=== PATIENT | female | born 1995 | race Two or more races ===

== ENCOUNTER → 2024-05-14 10:20 | Outpatient (CLI) | payer OTHER | END | disposition home or self-care (01) | LOC: PRENATAL 10:20 | PROVIDERS: ATTEND Obstetrics & Gynecology Maternal & Fetal Medicine | DX: O26.849 Uterine size-date discrepancy, unspecified trimester (principal); Z14.8 Genetic carrier of other disease; Z36.0 Encounter for antenatal screening for chromosomal anomalies; Z3A.17 17 weeks gestation of pregnancy ==

== ENCOUNTER 2024-06-12 15:50 | Outpatient (CLI) | payer OTHER | END 2024-06-12 15:51 | disposition home or self-care (01) | LOC: PRENATAL 15:50 | DX: O44.00 Complete placenta previa NOS or without hemorrhage, unspecified trimester (principal); Z3A.21 21 weeks gestation of pregnancy ==

== ENCOUNTER 2024-08-14 14:35 | Outpatient (CLI) | payer OTHER ==
[~2024-08-14] VITALS: Ht 157.5 cm; Wt 66.7 kg
[2024-08-14 14:16] VITALS: BP 103/65
[2024-08-14] MEDS ORDERED: PRENATAL TABLE1 EAC4 PO (14:38)
[2024-08-14 15:07] VITALS: BP 91/59
[2024-08-14 15:10] LABS: URINE APPEARANCE Turbid; URINE BILIRRUBIN Negative (NEGATIVE); URINE BLOOD Negative; URINE COLOR Yellow; URINE GLUCOSE Negative (NEGATIVE); URINE KETONE Negative (NEGATIVE); URINE LEUKOCYTE Moderate; URINE NITRATE Negative; URINE PROTEIN Negative (NEGATIVE); URINE UROBILINOGEN 0.2 E.U./dl
[2024-08-14 15:13] LABS: URINE BACTERIA 1590.9 uL (0.0-1933); URINE EPITHELIAL CELLS 77.4 uL (0.0-38.8); URINE WBC 24.3 uL (0.0-23.2)
[2024-08-14 15:26] LABS: BASO % 0.4 % (0.1-1.2); EOS # 0.06 (0.04-0.54); EOS % 0.8 % (0.7-7.0); HEMATOCRIT 35.6 % (34.1-44.9); HEMOGLOBIN 12.3 g/dL (11.2-15.7); LYMPH # 1.08 (1.18-3.74); LYMPH % 15.2 % (19.3-53.1); MEAN CORPUSCULAR HEMOGLOBIN 31.9 pg (25.6-32.2); MONO # 0.62 (0.24-0.82); MONO % 8.7 % (4.7-12.5); NEUT # 5.26 (1.56-6.13); NEUT % 74.2 % (34.0-71.1); PLATELET COUNT 166 K/uL (163-369); RED BLOOD COUNT 3.86 M/uL (3.93-5.22); RED CELL DISTRIBUTION WIDTH 12.1 % (11.6-14.4)
[2024-08-14 15:57] LABS: URINE CAST 0.14 uL (0.0-1.40); URINE RBC 1.3 uL (0.0-20.8)
[2024-08-14 19:44] VITALS: BP 114/72
[2024-08-14 20:34] VITALS: BP 114/72
== END 2024-08-14 20:34 | disposition home or self-care (01) ==
LOC: OBS/DEL 14:35
PROVIDERS: ATTEND Obstetrics & Gynecology
DX: O26.893 Other specified pregnancy related conditions, third trimester (principal); R10.2 Pelvic and perineal pain; Z3A.30 30 weeks gestation of pregnancy

== ENCOUNTER 2024-08-23 13:10 | Outpatient (CLI) | payer OTHER ==
[~2024-08-23 13:10] MED LIST: PRENATAL TABLE1 EAC4 PO
== END 2024-08-23 13:11 | disposition home or self-care (01) ==
LOC: PRENATAL 13:10
PROVIDERS: ATTEND Obstetrics & Gynecology Maternal & Fetal Medicine
DX: O26.849 Uterine size-date discrepancy, unspecified trimester (principal); O36.8199 Decreased fetal movements, unspecified trimester, other fetus; Z3A.31 31 weeks gestation of pregnancy

== ENCOUNTER 2024-10-22 06:47 | Inpatient (IN) | payer OTHER ==
[~2024-10-22] VITALS: Ht 160 cm; Wt 3.2 kg
[2024-10-22 07:00] VITALS: BP 114/72
[2024-10-22] MEDS ORDERED: RINGERS SOLUTION,LACTATED 1,000 ML IV SCH (07:00)
[2024-10-22] MEDS ORDERED: AMPICILLIN SODIUM 2,000 MG VIAL IV SCH (08:00)
[2024-10-22 08:01] LABS: BASO % 0.5 % (0.1-1.2); EOS # 0.09 (0.04-0.54); EOS % 1.2 % (0.7-7.0); LYMPH # 1.41 (1.18-3.74); LYMPH % 19.2 % (19.3-53.1); MEAN PLATELET VOLUME 11.30 fl (9.4-12.4); MONO # 0.61 (0.24-0.82); MONO % 8.3 % (4.7-12.5); NEUT # 5.11 (1.56-6.13); NEUT % 69.6 % (34.0-71.1); RED CELL DISTRIBUTION WIDTH 12.1 % (11.6-14.4)
[2024-10-22 08:04] LABS: URINE APPEARANCE Clear; URINE BILIRRUBIN Negative (NEGATIVE); URINE BLOOD Negative; URINE COLOR Yellow; URINE GLUCOSE Negative (NEGATIVE); URINE KETONE Negative (NEGATIVE); URINE LEUKOCYTE Moderate; URINE NITRATE Negative; URINE PROTEIN Negative (NEGATIVE); URINE UROBILINOGEN 0.2 E.U./dl
[2024-10-22 08:08] LABS: URINE BACTERIA 1973.9 uL (0.0-1933); URINE EPITHELIAL CELLS 78.9 uL (0.0-38.8); URINE RBC 4.6 uL (0.0-20.8); URINE WBC 156.5 uL (0.0-23.2)
[2024-10-22 08:11] LABS: URINE CAST 0.58 uL (0.0-1.40)
[2024-10-22] MEDS ORDERED: MISOPROSTOL 25 MCG/4 ML GEL.W.APPL ONE (08:12)
[2024-10-22] MEDS ORDERED: MISOPROSTOL 25 MCG/4 ML GEL.W.APPL VAG ONE ×2 (08:45→13:40)
[2024-10-22 09:04] LABS: INR 0.94
[2024-10-22 09:06] LABS: ALT/SGPT 19.0 U/L (12-78); AST/SGOT 16.0 U/L (15-37); BILIRUBIN TOTAL 0.33 mg/dL (0.3-1.2); BUN CREA RATIO 15.0 (7.0-25.0); CREATININE SERUM 0.48 mg/dL (0.55-1.02); GFR 154.0; GLOBULINA 3.3 G/DL (2.4-3.5); GLUCOSE FASTING 87.0 mg/dL (65-100); OSMOLALITY SERUM 277.0 MOSM/KG (275-295)
[2024-10-22 11:11] VITALS: BP 105/67
[2024-10-22] MEDS ORDERED: AMPICILLIN SODIUM 1,000 MG VIAL IV SCH (12:00)
[2024-10-22 15:18] VITALS: BP 115/69
[2024-10-22 16:22] VITALS: BP 124/69
[2024-10-22] MEDS ORDERED: MORPHINE SULFATE 4 MG/ML CARTRIDGE IV ONE ×2 (16:45→22:00)
[2024-10-22 19:19] VITALS: BP 112/61
[2024-10-22 23:24] VITALS: BP 113/73
[2024-10-23] MEDS ORDERED: CHLORHEXIDINE GLUCONATE 120 ML BOTTLE TOP ONE (02:14)
[2024-10-23] MEDS ORDERED: LIDOCAINE HCL 1% 10ML VIAL ONE (02:14)
[2024-10-23] MEDS ORDERED: OXYTOCIN 20 UNITS/1000ML RL PIGGYBAG IV ONE (02:14)
[2024-10-23] MEDS ORDERED: OXYTOCIN 10 UNITS/ML VIAL ONE ×3 (02:14→11:11)
[2024-10-23] MEDS ORDERED: ERYTHROMYCIN BASE OPHT 1GM EACH TUBE OP ONE ×2 (02:14→07:59)
[2024-10-23 04:37] VITALS: BP 129/65
[2024-10-23] MEDS ORDERED: OXYTOCIN 20 UNITS/500ML RL PIGGYBAG IV ONE (04:58)
[2024-10-23] MEDS ORDERED: OXYTOCIN 500 ML IV SCH (06:15)
[2024-10-23 07:15] VITALS: BP 126/87
[2024-10-23] MEDS ORDERED: CEFAZOLIN SODIUM 1,000 MG VIAL ONE (08:26)
[2024-10-23] MEDS ORDERED: MORPHINE SULFATE 4 MG/ML CARTRIDGE IV PRN (09:00)
[2024-10-23] MEDS ORDERED: SIMETHICONE 125 MG CAPSULE PO SCH (09:00)
[2024-10-23] MEDS ORDERED: DOCUSATE SODIUM 100MG CAP PO SCH (09:00)
[2024-10-23] MEDS ORDERED: RINGERS SOLUTION,LACTATED 1,000 ML IV SCH (10:00)
[2024-10-23] MEDS ORDERED: OXYTOCIN 1,000 ML IV SCH (10:00)
[2024-10-23] MEDS ORDERED: MORPHINE SULFATE 4 MG/ML VIAL IV ONE (10:15)
[2024-10-23 12:16] VITALS: BP 119/66
[2024-10-23 13:32] LABS: BASO % 0.1 % (0.1-1.2); EOS # 0.00 (0.04-0.54); EOS % 0.0 % (0.7-7.0); LYMPH # 0.56 (1.18-3.74); LYMPH % 3.7 % (19.3-53.1); MEAN PLATELET VOLUME 11.40 fl (9.4-12.4); MONO # 0.90 (0.24-0.82); MONO % 5.9 % (4.7-12.5); NEUT # 13.69 (1.56-6.13); NEUT % 89.6 % (34.0-71.1); RED CELL DISTRIBUTION WIDTH 12.0 % (11.6-14.4)
[2024-10-23 16:14] VITALS: BP 105/61
[2024-10-23 21:12] VITALS: BP 93/60
[2024-10-24 00:44] VITALS: BP 104/64
[2024-10-24 08:05] VITALS: BP 105/67
[2024-10-24 15:53] VITALS: BP 99/67
[2024-10-25 02:00] VITALS: BP 105/67
[2024-10-25 08:01] VITALS: BP 107/67
[2024-10-25 16:00] VITALS: BP 104/69
[2024-10-26] VITALS: BP 128/78
[2024-10-26 09:00] VITALS: BP 115/71
== END 2024-10-26 14:25 | disposition home or self-care (01) | DRG 788 ==
LOC: OB/GYN 06:47 → LDR 06:47 → O/R 10-23 08:08 → OB/GYN 10-23 10:16
PROVIDERS: ADMIT Obstetrics & Gynecology; ATTEND Obstetrics & Gynecology
PROC: 3E0P7VZ Introduction of Hormone into Female Reproductive, Via Natural or Artificial Opening (ICD-10-PCS; 2024-10-22)
PROC: 4A1HXCZ Monitoring of Products of Conception, Cardiac Rate, External Approach (ICD-10-PCS; 2024-10-22)
PROC: 3E033VJ Introduction of Other Hormone into Peripheral Vein, Percutaneous Approach (ICD-10-PCS; 2024-10-23)
PROC: 10D00Z1 Extraction of Products of Conception, Low, Open Approach (ICD-10-PCS; principal; 2024-10-23 07:00)
DX: O82 Encounter for cesarean delivery without indication (principal); O62.1 Secondary uterine inertia; Z3A.40 40 weeks gestation of pregnancy; Z37.0 Single live birth